=== PATIENT | female | born 1955 | race Caucasian/White ===

== ENCOUNTER 2017-05-29 09:25 | Day surgery (SDC) | payer BC ==
[2017-05-29] MEDS ORDERED: ROPIVACAINE 0.5 % 30 ML VIAL ×2 (09:29→11:34)
[2017-05-29] MEDS ORDERED: ONDANSETRON 4 MG INJ (09:29)
[2017-05-29] MEDS ORDERED: PROPOFOL 20 ML (09:29)
[2017-05-29] MEDS ORDERED: DEXAMETHASONE 4 MG/ML 1 ML INJ (09:29)
[2017-05-29] MEDS ORDERED: CEFAZOLIN 1 GM INJ (09:29)
[2017-05-29] MEDS ORDERED: FENTAnyl 50 MCG/ML VIAL ×2 (09:29→10:45)
[2017-05-29] MEDS ORDERED: ROCURONIUM 50 MG INJ (09:29)
[2017-05-29] MEDS ORDERED: GLYCOPYRROLATE 0.4 MG INJ (09:29)
[2017-05-29] MEDS ORDERED: NEOSTIGMINE 3 MG/3 ML SYRINGE (09:29)
[2017-05-29] MEDS ORDERED: MIDAZOLAM 1 MG/ML 2 ML INJ (09:29)
[2017-05-29] MEDS ORDERED: KETOROLAC 30 MG INJ (10:19)
[2017-05-29] MEDS ORDERED: SUGAMMADEX SODIUM 200 MG/2 ML VIAL IV ×2 (10:44→12:57)
[2017-05-29] MEDS ORDERED: BUPIVACAINE 0.5% (SDV) 30 ML INJ (11:34)
[2017-05-29] MEDS ORDERED: morphine 2 MG INJ IV (12:00)
[2017-05-29] MEDS ORDERED: NEOMYC/POLYMYX/BACIT 30 GM OINT (12:33)
[2017-05-29] MEDS: POLYMYXIN/BACITRACIN 1L IRRIG (12:39)
[2017-05-29] MEDS ORDERED: HYDROmorphONE (0.2 MG/ML) 10ML SYG IV (13:00)
[2017-05-29] MEDS ORDERED: DIPHENHYDRAMINE 50 MG INJ IV (13:00)
[2017-05-29] MEDS ORDERED: OXYCODONE/ACETAMINOPHEN (5/325) TAB PO ×2 (13:00)
[2017-05-29] MEDS ORDERED: hydrALAzine 20 MG INJ IV (13:00)
[2017-05-29] MEDS ORDERED: EPHEDrine SULFATE 50 MG/5 ML SYG IV (13:00)
[2017-05-29] MEDS ORDERED: FENTAnyl 50 MCG/ML VIAL IV ×3 (13:00)
[2017-05-29] MEDS ORDERED: IPRATROPIUM (NEB) 0.5 MG/2.5 ML AMP HHN (13:00)
[2017-05-29] MEDS ORDERED: TRIMETHOBENZAMIDE 100 MG/ML VIAL IM (13:00)
[2017-05-29] MEDS ORDERED: MEPERIDINE 25 MG INJ IV (13:00)
[2017-05-29] MEDS ORDERED: ALBUTEROL 0.083% (NEB) 2.5 MG/3 ML AMP HHN (13:00)
[2017-05-29] MEDS ORDERED: LABETALOL HCL 20MG INJ IV (13:00)
[2017-05-29] MEDS: ONDANSETRON 4 MG INJ IV (13:28)
[2017-05-29] MEDS: HYDROmorphONE (0.2 MG/ML) 10ML SYG IV ×3 (13:28→14:09)
[2017-05-29] MEDS: MIDAZOLAM 1 MG/ML 2 ML INJ IV (13:42)
== END 2017-05-29 16:17 | disposition home or self-care (01) ==
LOC: SDS 09:25
DX: S82.61XA Displaced fracture of lateral malleolus of right fibula, initial encounter for closed fracture (principal); X58.XXXA Exposure to other specified factors, initial encounter
CPT/HCPCS: 27792; 73610-RT

== ENCOUNTER 2018-11-19 08:42 | Emergency (ER) | payer BC ==
[2018-11-19] MEDS ORDERED: KETOROLAC 60 MG INJ IM (09:12)
[2018-11-19] MEDS: HYDROCODONE/APAP (5/325) TAB PO (09:27)
[2018-11-19] MEDS: ONDANSETRON (ODT) 4 MG TAB ODT (09:28)
[2018-11-19] MEDS ORDERED: DEXAMETHASONE 10 MG/ML 1 ML INJ IM (09:30)
[2018-11-19] MEDS: HYDROmorphONE 2 MG/ML SYG IM (10:38)
== END 2018-11-19 11:42 | disposition home or self-care (01) ==
LOC: FTE 08:42
DX: M25.511 Pain in right shoulder (principal)
CPT/HCPCS: 93005; 93971; 96372; 99285-25